=== PATIENT | male | born 1935 | race American Indian/Alaskan Native ===

== ENCOUNTER 2016-09-07 16:53 | Inpatient (IN) | payer MEDICARE ==
[2016-09-07 20:33] LABS: Basophils % (Auto) 0.8 % (0.0-1.8); Eosinophils % (Auto) 0.3 % (0.0-4.3); Hematocrit 38.3 % (35.5-45.6); Hemoglobin 12.3 gm/dl (11.8-15.2); Mean Corpuscular HGB Conc 32 % (32-34); Mean Corpuscular Hemoglobin 29 pg (28-32); Mean Corpuscular Volume 89 fl (84-94); Platelet Count 151 K/mm3 (140-440); Red Blood Count 4.33 M/mm3 (3.65-5.03); Red Cell Distribution Width 16.5 % (13.2-15.2); White Blood Count 6.9 K/mm3 (4.5-11.0)
[2016-09-07 20:44] LABS: Anion Gap 20 mmol/L; Blood Urea Nitrogen 24 mg/dL (9-20); Calcium 8.9 mg/dL (8.4-10.2); Carbon Dioxide 26 mmol/L (22-30); Chloride 98.6 mmol/L (98-107); Glucose 164 mg/dL (75-100); Potassium 4.2 mmol/L (3.6-5.0); Sodium 140 mmol/L (137-145)
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
--- NOTE | 2016-09-07 22:12 | Admit Criteria Form ---
Admission Criteria Documentation: CHEST PAIN Clinical Indications for Admission to Inpatient Care (Place 'X' for any and all applicable criteria): Admission is indicated for chest pain and ANY ONE of the following(1)(2)(3)(4)(5 ): [ ]I. Angina with acute coronary syndrome (Also use Myocardial Infarction or Angina guideline) [ ]II. Hemodynamic instability [ ]III. Angina needing acute intervention as indicated by ALL of the following( 11)(12): [ ]a) Unstable angina is present as indicated by angina that is ANY ONE of the following: [ ]i) New onset [ ]ii) Nocturnal [ ]iii) Prolonged at rest [ ]iv) Progressive [ ]b) Angina warrants acute intervention as indicated by ANY ONE of the following: [ ]i) Recurrent angina (e.g, not responding as previously to treatment) [ ]ii) Angina at rest or with low-level activities despite initial medical therapy [ ]iii) New or presumably new ST-segment depression on ECG [ ]iv) Signs or symptoms of heart failure (eg, dyspnea, pulmonary edema) [ ]v) New or worsening mitral regurgitation [ ]vi) Hemodynamic instability [ ]vii) Dangerous arrhythmia (eg, sustained ventricular tachycardia) [ ]viii) History of percutaneous coronary intervention within 6 months [ ]ix) History of coronary artery bypass graft surgery [ ]x) MAYRA risk score of 2 or greater[A] [ ]xi) History of Diabetes(14) [ ]xii) High-risk cardiac ischemia findings on noninvasive testing (e.g, echocardiogram, treadmill testing, nuclear scan) [ ]xiii) Chronic renal insufficiency (ie, estimated GFR less than 60 mL/min/1.732m) [ ]xiv) Left ventricular ejection fraction less than 40% [ ]IV. Evidence of FL (eg, cardiac biomarkers positive, ST-segment elevation on ECG) also use Myocardial Infarction Criteria Form. [ ]V. Pulmonary edema [ ]. Respiratory distress [ ]VII. Chest pain indicative of serious diagnosis other than coronary artery disease (eg, aortic dissection) [ ]VIII. Contraindications and/or Inappropriate clinical situations for Observational Care in patients with Chest Pain, when ANY ONE of the following is required: [ ]a) Patient with risk factor for pulmonary embolism, acute coronary syndrome and myocardial infarction (18) [ ]b) Patient with Pulmonary embolism require an average LOS of 4.3 days, therefore emergency department observation management is inappropriate 18,23 [ ]c) Painful condition/s in the elderly, have the highest rate of recidivism after emergency department observation management (10.8%) 20,21,22 [ ]d) Elevated cardiac biomarker requires intensive and exhaustive care (19) [X ]IX. General contraindications and/or Inappropriate clinical situations for Observational Care in patients with Chest Pain, when ANY ONE of the following is required: [ X]a) Prediction of prolongation of LOS based on ANY ONE of the following may be considered as a contraindication for observational care 2, 3, 4, 5, 6, 7, 8, 9, 10, 11 [X ]i) Age > 65 yrs. [ ]ii) Patient arriving by ambulance [ ]iii) Patient with high acuity [ X]iv) Patient requiring vital sign monitoring [ ]v) Patient on IV medication [ ]b) Systolic blood pressures 180mmHg 3,12 [ ]c) Patient with altered mental status including delirium and other alteration of consciousness, (3) [ ]d) Patient whose discharge disposition will be to a long-term home or rehabilitation home should not be managed in Emergency Department Observation Unit. CMS rule requires 3 days hospital stay before such placement. 3,13 [ ]e) Patient with failure to thrive due to broad array of etiologies 3,16,17 [ ]f) Inability to ambulate 3,14 Extended stay beyond goal length of stay may be needed for (1)(28): [ ]a) Specific condition diagnosed after evaluation (eg, pulmonary embolism, aortic dissection) [ ]b) Unstable angina [ ]c) Continued suspicion of acute coronary syndrome with inability to complete needed cardiac evaluation (eg, patient clinically unable to undergo stress testing) [ ]d) Myocardial infarction (Contents from ANGINA and CHEST PAIN clinical indications for admission to inpatient care have been integrated in this form) The original [employer] content created by [employer] has been revised. The portions of the content which have been revised are identified through the use of italic text or in bold, and [employer] [employer] has neither reviewed nor approved the modified material. All other unmodified content is copyright [employer]. Please see references footnoted in the original [employer] [place] [employer] edition 2016 Admission Criteria Met: Pending
--- NOTE | 2016-09-07 22:46 | History and Physical Report ---
History of Present Illness Chief complaint: chest pain History of present illness: 80 YO Male with HTN, DM, CHF(suspected), CAD, presents to ED for evaluation. Pt states that he has been experiencing chest pain today. Pt states that the pain began today at 11:00 hrs. Pt states that the pain was 5/10, lasted for approximately 6 hours, substernal, nonradiating, not worsened with exertion, or relieved with rest. Pt notified EMS. Pt given Aspirin by EMS. Pt denies fever, chills, Palpitation, syncope, prolonged travel/immobility, individual/family history of DVT/PE, hemoptysis,productive cough, unintentional weight loss, or night sweats. Past History Past Medical History: CAD, diabetes, hypertension, hyperlipidemia Past Surgical History: Other (Pacemaker) Social history: , lives with family. denies: smoking, alcohol abuse, prescription drug abuse Family history: diabetes, hypertension Medications and Allergies Allergies Allergy/AdvReac Type Severity Reaction Status Date / Time Penicillins Allergy Rash Verified 09/07/16 17:32 Review of Systems All systems: negative Cardiovascular: chest pain Exam - Constitutional Vitals: Temp Pulse Resp BP Pulse Ox 79 18 162/85 97 09/07/16 20:10 09/07/16 20:15 09/07/16 20:10 09/07/16 20:15 General appearance: Present: no acute distress, well-nourished - EENT Eyes: Present: PERRL ENT: hearing intact, clear oral mucosa - Neck Neck: Present: supple, normal ROM - Respiratory Respiratory effort: normal Respiratory: bilateral: CTA - Cardiovascular Heart Sounds: Present: S1 & S2. Absent: rub, click - Extremities Extremities: pulses symmetrical, No edema Peripheral Pulses: within normal limits - Abdominal General gastrointestinal: Present: soft, non-tender, non-distended, normal bowel sounds Male genitourinary: Present: normal - Integumentary Integumentary: Present: clear, warm, dry - Musculoskeletal Musculoskeletal: gait normal, strength equal bilaterally - Psychiatric Psychiatric: appropriate mood/affect, intact judgment & insight - Neurologic Neurologic: CNII-XII intact, moves all extremities Results - Labs CBC & Chem 7: 09/07/16 20:14 09/07/16 20:14 Labs: Abnormal lab results 09/07/16 09/07/16 Range/Units 20:14 20:14 RDW 16.5 H (13.2-15.2) % Seg Neutrophils % 74.0 H (40.0-70.0) % BUN 24 H (9-20) mg/dL Glucose 164 H (75-100) mg/dL Assessment and Plan - Patient Problems (1) Chest pain Current Visit: Yes Status: Acute Qualifiers: Chest pain type: unspecified Qualified Code(s): R07.9 - Chest pain, unspecified Plan to address problem: Serial cardiac enzymes, ekg, telemetry monitoring, Echo, stress test, (2) Diabetes type 2, controlled Current Visit: Yes Status: Acute Plan to address problem: ADA diet, insulin, accu check (3) Hypertension Current Visit: Yes Status: Acute Qualifiers: Hypertension type: essential hypertension Qualified Code(s): I10 - Essential (primary) hypertension Plan to address problem: monitor bp q shift, continue current therapy (4) CAD (coronary artery disease) Current Visit: Yes Status: Acute Plan to address problem: No unstable angina at this time. continue current therapy. (5) DVT prophylaxis Current Visit: Yes Status: Acute
[2016-09-07] MEDS: NITRO-BID 2% TP ONE ×2 (22:56→22:57)
[2016-09-07 23:20] LABS: INR 1.04 (0.87-1.13)
[2016-09-07 23:30] LABS: Alanine Aminotransferase 13 units/L (7-56); Alkaline Phosphatase 68 units/L (35-129); Bilirubin,Total 0.5 mg/dL (0.1-1.2); Total Protein 8.1 g/dL (6.3-8.2)
[2016-09-07 23:34] LABS: Partial Thromboplastin Time 26.1 Sec. (24.2-36.6)
[2016-09-07 23:41] LABS: Bilirubin,Direct < 0.2 mg/dL (0-0.2); Bilirubin,Indirect 0.3 mg/dL
[2016-09-07] MEDS ORDERED: TYLENOL PO PRN (23:48)
[2016-09-07] MEDS ORDERED: MILK OF MAGNESIA PO PRN (23:48)
[2016-09-07] MEDS ORDERED: SODIUM CHLORIDE FLUSH SYRINGE 10 ML IV PRN (23:50)
[2016-09-08 06:58] LABS: Creatine Kinase MB 2.5 ng/mL (0.0-4.0)
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
[2016-09-08] MEDS ORDERED: LEXISCAN IV ONE ×2 (09:44→09:47)
[2016-09-08 12:32] LABS: Creatine Kinase MB 2.3 ng/mL (0.0-4.0)
[2016-09-08 13:26] VITALS: BP 142/89
--- NOTE | 2016-09-08 13:55 | Discharge Summary ---
Providers - Providers Date of Admission: 09/07/16 23:48 Date of discharge: 09/08/16 Attending physician: MELINDA RUBIO MD 09/07/16 Consult to Cardiac Rehabilitation [CONS] Routine Reason For Exam: Phase I Hospitalization Reason for admission: chest pain Condition: Stable Hospital course: 80 YO Male with HTN, DM, CHF(suspected), CAD, presents to ED for evaluation. Pt states that he has been experiencing chest pain today. Pt states that the pain began today at 11:00 hrs. Pt states that the pain was 5/10, lasted for approximately 6 hours, substernal, nonradiating, not worsened with exertion, or relieved with rest. Pt notified EMS. Pt given Aspirin by EMS. Pt denies fever, chills, Palpitation, syncope, prolonged travel/immobility, individual/family history of DVT/PE, hemoptysis,productive cough, unintentional weight loss, or night sweats. patient was risk stratified and sent for stress test and echo. Stress test was negative, with Echo showing severe pulmonary hypertension. Patient was advised to follow with cardiology outpatient. Discharge diagnosis (1) Chest pain Likely secondary to costochondritis (2) Diabetes type 2, controlled (3) Hypertension (4) CAD (coronary artery disease) Disposition: DISCHARGED TO HOME OR SELFCARE Time spent for discharge: 35 mins Core Measure Documentation - Palliative Care Palliative Care/ Comfort Measures: Not Applicable - Core Measures Any of the following diagnoses?: none - VTE Discharge Requirements Deep Vein Thrombosis/Pulmonary Embolism Present on Admission: No Exam - Constitutional Vitals: Temp Pulse Resp BP Pulse Ox 96 H 17 142/89 98 09/08/16 13:21 09/08/16 13:21 09/08/16 13:21 09/08/16 13:21 General appearance: Present: no acute distress, well-nourished - EENT Eyes: Present: PERRL, EOM intact ENT: hearing intact - Neck Neck: Present: supple, normal ROM - Respiratory Respiratory effort: normal Respiratory: bilateral: CTA - Cardiovascular Rhythm: regular Heart Sounds: Present: S1 & S2. Absent: systolic murmur, diastolic murmur - Extremities Extremities: no ischemia, pulses intact, pulses symmetrical, No edema, normal temperature, normal color Peripheral Pulses: within normal limits - Abdominal General gastrointestinal: Present: soft, non-tender, non-distended, normal bowel sounds. Absent: tender, distended Male genitourinary: Present: deferred - Rectal Rectal Exam: deferred - Integumentary Integumentary: Present: clear, warm, dry - Musculoskeletal Musculoskeletal: strength equal bilaterally - Psychiatric Psychiatric: appropriate mood/affect, cooperative - Neurologic Neurologic: CNII-XII intact - Allied Health Allied health notes reviewed: nursing Plan Activity: advance as tolerated, fall precautions Diet: low salt Special Instructions: restrict fluid intake to (1200ml) Additional Instructions: cont home meds. patient states he has a children's counselor. He should follow with the children's counselor in [address] Pena Follow up with: OZZY PORTILLO [Other] - 3-5 Days
--- NOTE | 2016-09-08 18:23 | Echocardiography Report ---
Transthoracic Echocardiogram Indication: Chest Pain BP: 141/92 HR: 85 Conclusions *There is mild dilatation of the ascending aorta. *There is mild mitral stenosis. *There is trace mitral regurgitation. *Although aortic stenosis may be present, this study did not assess the severity adequately. (There is significant disparity between the measured aortic valve gradient, planimetered valve area and Doppler derived valve area raising question about the technical accuracy of the measurments). *There is mild aortic regurgitation. *The left ventricular chamber size is normal. *Moderate to severe concentric left ventricular hypertrophy is observed. *Global left ventricular systolic function is moderately decreased. *The estimated ejection fraction is 35-40%. *The right ventricular chamber size and systolic function are within normal limits. *There is evidence of severe pulmonary hypertension. *The right ventricular systolic pressure is calculated at 64 mmHg. Findings Procedure Info: The study quality is fair. The study is technically limited due to poor acoustic windows. Left Ventricle: The left ventricular chamber size is normal. Moderate to severe concentric left ventricular hypertrophy is observed. Moderate global hypokinesis of the left ventricle is observed. Global left ventricular systolic function is moderately decreased. The estimated ejection fraction is 35-40%. Left Atrium: The left atrium is normal in size with no visual thrombus identified. Right Ventricle: The right ventricular chamber size and systolic function are within normal limits. Right Atrium: The right atrial cavity size is normal. Aortic Valve: The aortic valve is trileaflet. The aortic valve leaflets are mildly thickened. There is mild aortic regurgitation. The mean gradient of the aortic valve is 6 mmHg. The peak instantaneous gradient of the aortic valve is 10 mmHg. The aortic valve area, by peak velocities, is calculated at 1.03 cm2. The aortic valve area, by VTI's, is calculated at 0.87 cm2. Mitral Valve: There is mitral annular calcification. The mitral valve leaflets are moderately thickened. There is trace of mitral regurgitation. There is mild mitral stenosis. The mean gradient across the mitral valve is 4 mmHg. The peak gradient across the mitral valve is 9 mmHg. Tricuspid Valve: The tricuspid valve is not well visualized. There is mild tricuspid regurgitation. The right ventricular systolic pressure is calculated at 64 mmHg. There is evidence of severe pulmonary hypertension. There is no tricuspid stenosis. Pulmonic Valve: The pulmonic valve is not well visualized. There is mild pulmonic regurgitation. There is no pulmonic stenosis. Pericardium: There is no pericardial effusion. No pleural effusion is present. Aorta: There is mild dilatation of the ascending aorta. Pulmonary Artery: The main pulmonary artery is not well visualized. Venous: The inferior vena cava is dilated. There is less than 50% respiratory change in the inferior vena cava dimension. Measurements Chambers MM Name Value Normal Range IVSd (MM) 2.02 cm (0.6 - 1.1) LVPWd (MM) 1.34 cm (0.6 - 1.1) IVS:LVPW ratio 1.51 ratio - LVIDd (MM) 4.3 cm (3.7 - 5.6) LVIDs (MM) 3.45 cm (2 - 2.8) LV FS (Teichholz) (MM) 19.8 % - LV FS (cube) (MM) 19.8 % - EF Teichholz (MM) 40.9 % - Ao root diameter (MM) 4.4 cm (2 - 3.7) LA dimension (AP) MM 3.1 cm (1.9 - 4) LA:Ao ratio (MM) 0.7 ratio - AV cusp separation (MM) 1.5 cm (1.5 - 2.6) Chambers 2D Name Value Normal Range IVSd (2D) 1.79 cm (0.6 - 1.1) LVPWd 1.6 cm - LVPWd (2D) 1.56 cm (0.6 - 1.1) IVS:LVPW ratio (2D) 1.15 ratio - LVIDd 3.1 cm - LVIDs 2.97 cm - LVIDd (2D) 3.05 cm (3.7 - 5.6) LVIDs (2D) 2.97 cm (2 - 3.8) LV FS (Teichholz) (2D) 2.62 % - LV FS (cube) (2D) 2.62 % - LV EF (2D) 33 % - EF Teichholz (2D) 6.04 % - LA dimension 4.5 cm - Ao root diameter (2D) 3.4 cm (2 - 3.7) LA dimension (AP) 2D 3.9 cm (1.9 - 4) LA:Ao ratio (2D) 1.15 ratio - Volumes/Mass Name Value Normal Range LA ESV SP 4CH (MOD) 69 ml - LV EDV SP 4CH (MOD) 101 ml - LV ESV SP 4CH (MOD) 66 ml - EF SP 4CH (MOD) 35 % - Diastolic/Systolic Function Name Value Normal Range MV E-wave Vmax 1.23 m/sec - MV deceleration time 201 msec - MV A-wave Vmax 0.78 m/sec - MV E:A ratio 1.6 ratio - LV septal e' Vmax 0.05 m/sec - LV E:e' septal ratio 26.9 ratio - Aortic Valve Name Value Normal Range AV Vmax 1.58 m/sec - AV VTI 28.4 cm - AV peak gradient 10 mmHg - AV mean gradient 6 mmHg - LVOT diameter 1.8 cm - LVOT Vmax 0.64 m/sec - LVOT VTI 9.75 cm - LVOT peak gradient 2 mmHg - LVOT mean gradient 1 mmHg - SV LVOT 25 ml - SHALINI (continuity Vmax) 1.03 cm2 - SHALINI (continuity VTI) 0.87 cm2 - Mitral Valve Name Value Normal Range MV Vmax 1.51 m/sec - MV VTI 24.5 cm - MV peak gradient 9 mmHg - MV mean gradient 4 mmHg - MVA (continuity VTI) 1.01 cm2 - Tricuspid Valve Name Value Normal Range TR Vmax 3.51 m/sec - TR peak gradient 49 mmHg - RAP 15 mmHg - RVSP 64 mmHg - Pulmonic Valve/Qp:Qs Name Value Normal Range PV Vmax 0.42 m/sec - PV peak gradient 1 mmHg - NE end-diastolic Vmax 1.54 m/sec - PV acceleration time 85 msec -
--- NOTE | 2016-09-08 23:14 | Treadmill Report ---
THALLIUM STRESS TEST LEFT VENTRICLE: Left ventricle appears mildly dilated. Perfusion study demonstrates homogeneous uptake of the tracer in all segments, no significant defects identified. Mild diaphragmatic attenuation artifact is noted. Gated analysis suggests moderately severe left ventricular systolic dysfunction with ejection fraction calculated at 25%. CONCLUSION: Evidence of a dilated cardiomyopathy, moderately severe left ventricular systolic dysfunction, ejection fraction 25%. The perfusion images revealed no significant ischemic defects, suggesting a nonischemic cardiomyopathy. Clinical correlation is recommended, and echocardiographic reassessment of left ventricular size and systolic function is suggested. [facility]# [id number] [place]/NTS
== END 2016-09-08 15:12 | disposition home or self-care (01) | DRG 206 ==
LOC: ED 16:53 → 4A 23:48
PROVIDERS: ADMIT Internal Medicine; ATTEND Internal Medicine
DX: M94.0 Chondrocostal junction syndrome [Tietze] (principal); I13.0 Hypertensive heart and chronic kidney disease with heart failure and stage 1 through stage 4 chronic kidney disease, or unspecified chronic kidney disease; I25.10 Atherosclerotic heart disease of native coronary artery without angina pectoris; E78.5 Hyperlipidemia, unspecified; I50.9 Heart failure, unspecified; I27.2 Other secondary pulmonary hypertension; I77.819 Aortic ectasia, unspecified site; I45.10 Unspecified right bundle-branch block; E11.22 Type 2 diabetes mellitus with diabetic chronic kidney disease; N18.3 Chronic kidney disease, stage 3 (moderate); M1A.9XX0 Chronic gout, unspecified, without tophus (tophi); Z88.0 Allergy status to penicillin; Z95.0 Presence of cardiac pacemaker; Z83.3 Family history of diabetes mellitus; Z82.49 Family history of ischemic heart disease and other diseases of the circulatory system
CPT/HCPCS: 36415; 71010; 78452; 80048; 80074; 82550; 82553; 83880; 84484; 85025; 85610; 85730; 93005; 93010; 93017; 93306; 96374; A9502; J2785